=== PATIENT | female | born 2000 | race Caucasian/White ===

== ENCOUNTER 2021-10-25 08:55 | Day surgery (SDC) | payer OTHER ==
[~2021-10-25] VITALS: Ht 154.9 cm; Wt 88.9 kg
[~2021-10-25 08:55] MED LIST: HUMI40IN2 SC; LIDOCAINE 2% 100MG/5ML SDV (FOR ANES.) As Ordered ONE; NORG1TAB4 PO; NS 1,000 ML IV ONE; OMEP-173 PO; SERT50TA29 PO; propofoL 200 MG/20 ML VIAL As Ordered ONE
[2021-10-25 11:14] VITALS: BP 115/67
== END 2021-10-25 11:17 | disposition home or self-care (01) ==
LOC: M OPP 08:55
PROVIDERS: ATTEND Internal Medicine Gastroenterology
DX: K51.00 Ulcerative (chronic) pancolitis without complications (principal); K51.40 Inflammatory polyps of colon without complications; Z79.3 Long term (current) use of hormonal contraceptives; Z79.899 Other long term (current) drug therapy